=== PATIENT | female | born 1970 | race African-American/Black ===

== ENCOUNTER 2018-07-07 04:32 | Emergency (ER) | payer OTHER ==
[~2018-07-07 04:32] MED LIST: NEO/POLY/HC OTIC SUSP 10 ML BTTL RIGHT_EAR ONE
[2018-07-07] MEDS ORDERED: LIDOCAINE 2 % GEL 5 ML TUBE TOP ONE (04:34)
[2018-07-07] MEDS ORDERED: NEO/POLY/HC OTIC SUSP 10 ML BTTL ONE (04:44)
--- NOTE | 2018-07-07 04:51 | ED.PDOC ---
History of Present Illness - General Chief Complaint: ENT Problem Stated Complaint: insect in Rt ear Time Seen by Provider: 07/07/18 04:49 Source: patient Exam Limitations: no limitations - History of Present Illness Initial Comments: Patricia Ayala 48 y/o female came to ER felt bug got int her right ear tonight while asleep had intermittent pain inside right ear.Recently treated for right ear infection. Timing/Duration: abrupt Severity: moderate EENT Location: ear (R) Prearrival Treatment: no prearrival treatment Presenting Symptoms: felt bug right ear Improving Factors: nothing Worsening Factors: nothing Allergies/Adverse Reactions: Allergies Acetaminophen Allergy (Verified 11/27/14 08:21) Nausea Latex Allergy (Verified 11/27/14 08:24) Nutra-Sweet Allergy (Uncoded 11/27/14 08:21) Other swelling Home Medications: Ambulatory Orders Chlorthalidone 25 mg PO BEDTIME 11/27/14 Cyclobenzaprine HCl [Flexeril] 10 mg PO DAILY 11/27/14 Hydroxychloroquine [Plaquenil] 200 mg PO BID 11/27/14 Omeprazole 40 mg PO DAILY 11/27/14 Potassium Chloride [Micro-K] 10 meq PO BID 11/27/14 Prednisone 5 mg PO DAILY 11/27/14 Amlodipine Besylate [Norvasc] 2.5 mg PO DAILY 01/25/16 Aspirin [Aspirin Adult Low Dose] 81 mg PO DAILY 01/25/16 Chlorhexidine Gluconate (Mouth [Paroex] 0.12 % MT DAILY 01/25/16 Chromium Picolinate 200 mcg PO PRN 01/25/16 Eletriptan Hydrobromide [Relpax] 40 mg PO PRN 01/25/16 Epinephrine [Epipen 2-Santy] 0.3 mg IJ PRN 01/25/16 Epinephrine [Epipen 2-Santy] 0.3 mg IJ PRN 01/25/16 Levalbuterol HCl [Xopenex] 0.63 mg IN Q6H 01/25/16 Mometasone Furoate (Nasal) [Nasonex] 50 mcg NA DAILY 01/25/16 Olmesartan Medoxomil [Benicar] 40 mg PO DAILY 01/25/16 HYDROcodone/IBUPROFEN 7.5/200 [Vicoprofen] 1 ea PO Q4H PRN #90 tab 01/29/16 Rivaroxaban [Xarelto] 10 mg PO QD #9 tab 01/29/16 Review of Systems - Review of Systems EENTM: States: see HPI All other Systems: Reviewed and Negative, No Change from Baseline Past Medical History (General) - Patient Medical History Hx Stroke: No Hx Asthma: - inflammation r/t lupus - inhaler used Hx Congestive Heart Failure: No Hx Hypertension: Yes Hx Diabetes: No Hx MRSA: No Surgical History: other - knee, - Vaccination History Hx Influenza Vaccination: Yes - 2013 Hx Pneumococcal Vaccination: Yes - due in 2015 - Social History Hx Tobacco Use: No Hx Physical Abuse: No Hx Emotional Abuse: No - Female History Patient is a Female of Child Bearing Age (10 -59 yrs old): Yes Hx Last Menstrual Period: 06/25/18 Patient : No Family Medical History - Family History Mother Living Status: Still Living Hx Family Diabetes: Yes Father Age (years): 61 Living Status: Still Living Hx Family Stroke: Yes - 2004 Physical Exam - Physical Exam General Appearance: Alert, Comfortable, No apparent distress Eye Exam: bilateral normal Ear Exam: right ear: TM red, foreign body - insect, bilateral ear: auricle normal, canal normal Nasal Exam: normal inspection Throat Exam: pharynx normal Neck: full range of motion, supple, normal inspection, trachea midline Cardiovascular/Respiratory: regular rate, rhythm, no M/R/G, normal peripheral pulses, no JVD Abdominal Exam: non-tender, no organomegaly Neurologic: alert, oriented x 3 Skin Exam: normal color, warm/dry Progress - Progress Progress: 07/07/18 04:56 Vital Signs - 8 hr 07/07/18 04:40 Temperature 96.7 F L Pulse Rate [ 126 H left] Respiratory 22 Rate Blood Pressure 116/87 [left] O2 Sat by Pulse 99 Oximetry Procedures - Foreign Body Removal Foreign Body Removal: bug - right ear;instilled lidocaine gel then flushed with 20 cc saline bug came out showed to patient;eyrhema right ear corticosporin ear drops 5 drops into right ear canal no peforation of eardrum noted after bug flushed out Departure - Departure Clinical Impression: Foreign body in right ear Qualifiers: Encounter type: initial encounter Qualified Code(s): T16.1XXA - Foreign body in right ear, initial encounter Time of Disposition: 04:59 Disposition: Discharge to Home or Self Care Condition: Fair Departure Forms: ED Discharge - Pt. Copy, Patient Portal Self Enrollment Instructions: DI for Ear Pain-Adult Referrals: Sudhir Matthew MD [Primary Care Provider] - 1-2 Weeks Home Medications: Ambulatory Orders Chlorthalidone 25 mg PO BEDTIME 11/27/14 Cyclobenzaprine HCl [Flexeril] 10 mg PO DAILY 11/27/14 Hydroxychloroquine [Plaquenil] 200 mg PO BID 11/27/14 Omeprazole 40 mg PO DAILY 11/27/14 Potassium Chloride [Micro-K] 10 meq PO BID 11/27/14 Prednisone 5 mg PO DAILY 11/27/14 Amlodipine Besylate [Norvasc] 2.5 mg PO DAILY 01/25/16 Aspirin [Aspirin Adult Low Dose] 81 mg PO DAILY 01/25/16 Chlorhexidine Gluconate (Mouth [Paroex] 0.12 % MT DAILY 01/25/16 Chromium Picolinate 200 mcg PO PRN 01/25/16 Eletriptan Hydrobromide [Relpax] 40 mg PO PRN 01/25/16 Epinephrine [Epipen 2-Santy] 0.3 mg IJ PRN 01/25/16 Epinephrine [Epipen 2-Santy] 0.3 mg IJ PRN 01/25/16 Levalbuterol HCl [Xopenex] 0.63 mg IN Q6H 01/25/16 Mometasone Furoate (Nasal) [Nasonex] 50 mcg NA DAILY 01/25/16 Olmesartan Medoxomil [Benicar] 40 mg PO DAILY 01/25/16 HYDROcodone/IBUPROFEN 7.5/200 [Vicoprofen] 1 ea PO Q4H PRN #90 tab 01/29/16 Rivaroxaban [Xarelto] 10 mg PO QD #9 tab 01/29/16 Additional Instructions: continue with all home meds;Continue with corticosporin ear drops -5 drops to right ear 3 x a day for 5 days;Recheck with primary Md 11 Jul 2018 as needed
[2018-07-07 05:01] VITALS: BP 116/87; TEMP 96.7; O2SAT 99
== END 2018-07-07 05:06 | disposition home or self-care (01) ==
LOC: ER 04:32
DX: T16.1XXA Foreign body in right ear, initial encounter (principal); J45.909 Unspecified asthma, uncomplicated; I10 Essential (primary) hypertension; M32.19 Other organ or system involvement in systemic lupus erythematosus; Z79.899 Other long term (current) drug therapy; Z79.82 Long term (current) use of aspirin; Z79.01 Long term (current) use of anticoagulants